=== PATIENT | female | born 1935 | race Caucasian/White ===

== ENCOUNTER → 2017-12-22 | Emergency (ER) | payer OTHER ==
[~2017-12-22] VITALS: Ht 149.9 cm; Wt 49.9 kg
[~2017-12-22] MED LIST: AVAPRO150 MG PO; LIPITOR20 MG PO; OMEPRAZOLE20 MG PO; PEPCID40 MG PO; SYNTHROID50 MCG
== END | disposition home or self-care (01) ==
LOC: ER 10:59
DX: K29.60 Other gastritis without bleeding (principal)